=== PATIENT | female | born 1995 | race Caucasian/White ===

== ENCOUNTER 2017-04-01 11:31 | Emergency (ER) | payer BC ==
[~2017-04-01] VITALS: Ht 167.6 cm; Wt 63.6 kg
[2017-04-01 14:39] VITALS: BP 110/62
== END 2017-04-01 15:08 | disposition home or self-care (01) ==
LOC: EME 11:31
DX: M54.5 Low back pain (principal); V00.311A Fall from snowboard, initial encounter; Y93.23 Activity, snow (alpine) (downhill) skiing, snowboarding, sledding, tobogganing and snow tubing; Z87.442 Personal history of urinary calculi
CPT/HCPCS: 72131; 84702; 99281; 99285